=== PATIENT | female | born 1990 | race Caucasian/White ===

== ENCOUNTER 2019-09-11 11:23 | Emergency (ER) | payer OTHER ==
[2019-09-11 11:29] VITALS: BMI 27.3
--- NOTE | 2019-09-11 12:40 | PDOC ---
History of Present Illness - General Chief Complaint: Pain Stated Complaint: 20 WKS,ABD PAIN Time Seen by Provider: 09/11/19 12:03 - History of Present Illness Initial Comments: 09/11/19 12:34 29F L1, 20 weeks (last u/s 2 weeks ago) presents to the ED for sharp epigastric associated with 2 episodes of watery vomiting, one last night and one in the morning upon waking up. This morning the pain peaked at 8/10. now is 6/10, without any medication. Denies current nausea. Think this might be due to something she ate for lunch yesterday that tasted "off" Denies vaginal discharge, dysuria, fever, chills or dizziness. Follow up with OBGYN at [place] [id number] [facility] Past History - Past Medical History Allergies/Adverse Reactions: Allergies Allergy/AdvReac Type Severity Reaction Status Date / Time No Known Allergies Allergy Verified 09/11/19 11:29 Home Medications: Ambulatory Orders Ondansetron [Ondansetron Odt] 8 mg PO PRN #6 tab.rapdis 09/11/19 COPD: No - Psycho Social/Smoking Cessation Hx Smoking History: Never smoked Review of Systems - Review of Systems Able to Perform ROS?: Yes Is the patient limited [place] proficient: No Constitutional: No: Symptoms Reported HEENTM: No: Symptoms Reported Respiratory: No: Symptoms reported Cardiac (ROS): No: Symptoms Reported ABD/GI: Yes: See HPI : No: Symptoms Reported Musculoskeletal: No: Symptoms Reported Integumentary: No: Symptoms Reported Neurological: No: Symptoms reported All Other Systems: Reviewed and Negative *Physical Exam - Vital Signs Last Vital Signs Temp Pulse Resp BP Pulse Ox 98.4 F 92 H 18 104/64 99 09/11/19 11:25 09/11/19 11:25 09/11/19 11:25 09/11/19 11:25 09/11/19 11:25 - Physical Exam General Appearance: Yes: Nourished, Appropriately Dressed. No: Apparent Distress HEENT: positive: EOMI, BEL, Pharynx Normal Respiratory/Chest: positive: Lungs Clear, Normal Breath Sounds. negative: Chest Tender, Respiratory Distress Cardiovascular: positive: Regular Rhythm, Regular Rate, S1, S2 Gastrointestinal/Abdominal: positive: Normal Bowel Sounds, Tender (epigastric), Soft, Protuberent Musculoskeletal: positive: Normal Inspection Extremity: positive: Normal Capillary Refill, Normal Inspection, Normal Range of Motion Integumentary: positive: Normal Color, Dry, Warm Neurologic: positive: Fully Oriented, Alert, Normal Mood/Affect, Normal Response , Motor Strength 5/5 Medical Decision Making - Medical Decision Making 09/11/19 13:58 29F L1, 20 weeks (last u/s 2 weeks ago) presents to the ED for sharp epigastric associated with 2 episodes of watery vomiting, one last night and one in the morning upon waking up. PAtietn feels better with maalox. POCUS abdomen shows normal iU with heart rate 142 OK to dc home with zofran Rx and OBGYN follow up. Discharge - Discharge Information Problems reviewed: Yes Clinical Impression/Diagnosis: Dyspepsia, Vomiting Condition: Improved Disposition: HOME - Admission No - Additional Discharge Information Prescriptions: Ondansetron [Ondansetron Odt] 8 mg PO PRN #6 tab.rapdis - Follow up/Referral - Patient Discharge Instructions Patient Printed Discharge Instructions: DI for Vomiting -- Adult Additional Instructions: Follow up with your OBGYN within the next 3-4 days. Come back top the emergency department for any new, worsening or concerning symptoms. - Post Discharge Activity
[2019-09-11] MEDS ORDERED: MAG HYDROX/AL HYDROX/SIMETH 30 ML UNIT-DOSE CUP PO ONE (12:47)
[2019-09-11] MEDS ORDERED: MAG HYDROX/AL HYDROX/SIMETH 30 ML UNIT-DOSE CUP ONE (12:50)
[2019-09-11] MEDS ORDERED: ONDANSETRON 4 MG/2 ML VIAL IVPUSH ONE (13:03)
[2019-09-11] MEDS ORDERED: ONDANSETRON *ODT* 4 MG TABLET ONE (13:24)
--- NOTE | 2019-09-11 14:02 | PDOC ---
Attending Attestation - Resident Resident Name: Yuan Alejo - ED Attending Attestation I have performed the following: I have examined & evaluated the patient, The case was reviewed & discussed with the resident, I agree w/resident's findings & plan, Exceptions are as noted - HPI HPI: 09/11/19 17:43 29 years old approximately 20 weeks presents to the ED with 1 day history of nausea and vomiting after eating which she thought was a bad can of pasta Symptoms are mild she has not vomited since this morning has some mild epigastric discomfort associated which comes and goes in waves - Physicial Exam PE: 09/11/19 17:46 Vitals: Triage Vital signs reviewed General Appearance: No acute distress, well nourished well developed, Head: Atraumatic, Chest Wall: Nontender Cardiac: Regular rate and rhythym, no murmurs, no rubs, no gallops, Lungs: Clear to auscultation bilateral, good air movement bilaterally, Abdomen: Soft, non distended, normal bowel sounds, non tender to palpation Extremities: Full range of motion to all extremities, no cyanosis, clubbing, or edema Skin: Warm and dry, no rashes or lesions, no rash, no petechiae Psych: Normal mood, normal affect - Medical Decision Making 09/11/19 17:47 Well-appearing no apparent distress benign abdominal examination status post Maalox and Zofran patient feels much better not tolerating fluids by mouth Patient being sent to OB for ultrasound Findings, the need for follow-up and strict return instructions discussed with patient.
[2019-09-11 14:46] VITALS: BP 121/66; PULSE 82; TEMP 98.2
== END 2019-09-11 15:10 | disposition home or self-care (01) ==
LOC: JER 11:23
PROC: BY4CZZZ Ultrasonography of Second Trimester, Single Fetus (ICD-10-PCS; principal; 2019-09-11)
PROC: 3E033GC Introduction of Other Therapeutic Substance into Peripheral Vein, Percutaneous Approach (ICD-10-PCS; 2019-09-11)
DX: O26.892 Other specified pregnancy related conditions, second trimester (principal); R10.13 Epigastric pain; Z3A.20 20 weeks gestation of pregnancy
CPT/HCPCS: 76801-TC; 96374; 99282-25

== ENCOUNTER 2023-01-23 13:29 | Emergency (ER) | payer OTHER ==
[2023-01-23 13:34] VITALS: BP 136/81; PULSE 109; RESP 18; TEMP 98.3; BMI 23.6
[2023-01-23] MEDS ORDERED: FAMOTIDINE 20 MG/50 ML IVPB 20 MG/50 ML MG IVPB ONE ×2 (15:22→15:39)
[2023-01-23] MEDS ORDERED: MAG HYDROX/AL HYDROX/SIMETH 30 ML UNIT-DOSE CUP PO ONE (15:22)
[2023-01-23] MEDS ORDERED: MAG HYDROX/AL HYDROX/SIMETH 30 ML UNIT-DOSE CUP ONE (15:39)
[2023-01-23 15:41] LABS: HEMATOCRIT 36.1 % (32.4-45.2); HEMOGLOBIN 12.1 GM/dL (10.7-15.3); MCH 26.6 pg (25.7-33.7); MCHC 33.7 g/dl (32.0-36.0); PLATELET COUNT 295 10^3/uL (134-434); RBC 4.57 M/mm3 (3.60-5.2); RDW 14.3 % (11.6-15.6); WHITE BLOOD COUNT 10.1 K/mm3 (4.0-10.0)
[2023-01-23 15:53] LABS: INR 1.23 (0.83-1.09); PROTHROMBIN TIME (PATIENT) 14.2 SEC (9.7-13.0)
[2023-01-23 16:02] LABS: BLOOD UREA NITROGEN 10.6 mg/dL (7-18); CALCIUM 9.7 mg/dL (8.5-10.1)
[2023-01-23 16:03] LABS: ALBUMIN 4.4 g/dl (3.4-5.0); MAGNESIUM 2.3 mg/dL (1.8-2.4)
[2023-01-23 16:06] LABS: CREATININE 0.6 mg/dL (0.55-1.3)
[2023-01-23 16:07] LABS: BILIRUBIN,TOTAL 0.3 mg/dL (0.2-1); TOT PROT 7.8 g/dl (6.4-8.2)
[2023-01-23] MEDS ORDERED: SODIUM CHLORIDE 0.9% 500 ML INFUS.BAG IV ONE (16:34)
== END 2023-01-23 19:34 | disposition home or self-care (01) ==
LOC: JER 13:29
PROC: 3E033GC Introduction of Other Therapeutic Substance into Peripheral Vein, Percutaneous Approach (ICD-10-PCS; principal; 2023-01-23)
DX: R53.1 Weakness (principal); R07.9 Chest pain, unspecified; Z20.822 Contact with and (suspected) exposure to COVID-19
CPT/HCPCS: 0241U-QW; 36415; 71046-TC-FY; 71275-TC; 80053; 83735; 84443; 84703; 85027; 85379; 85610; 86850; 86870; 86900; 86901; 86902; 93005; 93010; 99285-25

== ENCOUNTER 2024-04-14 09:00 | Inpatient (IN) | payer OTHER ==
[2024-04-14] MEDS: LACTATED RINGERS SOLUTION 1,000 ML/1,000 ML INFUS.BAG IV SCH (09:30)
[2024-04-14 10:17] VITALS: BMI 30.9
[2024-04-14 10:31] LABS: BASO % 0.2 % (0-2.0); EOS % 0.6 % (0-4.5); HEMATOCRIT 32.2 % (32.4-45.2); HEMOGLOBIN 10.5 GM/dL (10.7-15.3); LYMPH % 15.5 % (8-40); MCH 25.1 pg (25.7-33.7); MCHC 32.7 g/dl (32.0-36.0); MEAN CELL VOLUME 76.7 fl (80-96); MEAN PLT VOLUME 8.2 fl (7.5-11.1); MONO % 4.9 % (3.8-10.2); NEUT % 78.8 % (42.8-82.8); PLATELET COUNT 347 10^3/uL (134-434); RDW 15.6 % (11.6-15.6); WHITE BLOOD COUNT 9.5 K/mm3 (4.0-10.0)
[2024-04-14 10:41] LABS: INR 1.02 (0.83-1.09); PROTHROMBIN TIME (PATIENT) 11.7 SEC (9.7-13.0)
[2024-04-14 10:44] LABS: ACTIVATED PTT 26.7 SECONDS (25.2-36.5)
[2024-04-14 10:49] LABS: POTASSIUM 3.9 mmol/L (3.5-5.1)
[2024-04-14 10:51] LABS: CALCIUM 8.7 mg/dL (8.5-10.1)
[2024-04-14 10:52] LABS: BLOOD UREA NITROGEN 5.8 mg/dL (7-18)
[2024-04-14 10:55] LABS: CREATININE 0.6 mg/dL (0.55-1.3)
[2024-04-14 11:46] LABS: HIV INTERPRETATION NEGATIVE (NEGATIVE)
[2024-04-14] MEDS ORDERED: OXYTOCIN 30 UNITS in 0.9% NS 30 UNIT/500 ML INFUS.BAG IVPB ONE (13:25)
[2024-04-14] MEDS: OXYTOCIN 30 UNITS in 0.9% NS 30 UNIT/500 ML INFUS.BAG IVPB SCH (13:30)
[2024-04-14] MEDS ORDERED: FENTANYL/BUPIVACAINE/NS/PF - PCEA - 50 ML DISP.SYRIN EP ONE (14:18)
[2024-04-14] MEDS ORDERED: OXYTOCIN 20 UNITS in 0.9% NS 20 UNIT/1,000 ML INFUS.BAG IV ONE (16:44)
[2024-04-14] MEDS ORDERED: BISACODYL 10 MG SUPP.RECT RC PRN (18:10)
[2024-04-14] MEDS ORDERED: METHYLERGONOVINE MALEATE 0.2 MG/1 ML AMP IM PRN (18:10)
[2024-04-14] MEDS ORDERED: oxyCODONE HCL 5 MG TABLET PO PRN (18:10)
[2024-04-14] MEDS: OXYTOCIN 20 UNITS in 0.9% NS 20 UNIT/1,000 ML INFUS.BAG IV SCH (19:00)
[2024-04-14] MEDS ORDERED: ACETAMINOPHEN 325 MG TABLET (FP) ONE (20:01)
[2024-04-14] MEDS: ACETAMINOPHEN 325 MG TABLET (FP) PO PRN (20:02)
[2024-04-14] MEDS: WITCH HAZEL 50% (TUCKS) 40 PAD/JAR PAD TP PRN (21:27)
[2024-04-14] MEDS: BENZOCAINE 28 GM HEMORRHOIDAL OINTMENT TP PRN (21:27)
[2024-04-14] MEDS: BENZOCAINE 20% 57 GM BOTTLE TP PRN (21:27)
[2024-04-15 08:33] LABS: BASO % 0.2 % (0-2.0); EOS % 0.6 % (0-4.5); HEMATOCRIT 28.6 % (32.4-45.2); HEMOGLOBIN 9.5 GM/dL (10.7-15.3); LYMPH % 12.8 % (8-40); MCH 25.2 pg (25.7-33.7); MCHC 33.2 g/dl (32.0-36.0); MEAN CELL VOLUME 76.1 fl (80-96); MEAN PLT VOLUME 8.3 fl (7.5-11.1); MONO % 5.9 % (3.8-10.2); NEUT % 80.5 % (42.8-82.8); PLATELET COUNT 308 10^3/uL (134-434); RBC 3.76 M/mm3 (3.60-5.2); RDW 15.4 % (11.6-15.6); WHITE BLOOD COUNT 12.8 K/mm3 (4.0-10.0)
[2024-04-15] MEDS: PRENATAL VITAMINS W/ FOLIC ACID TABLET (FP) PO SCH (09:10)
[2024-04-15] MEDS: IBUPROFEN 600 MG TABLET (FP) PO PRN (09:10)
[2024-04-15] MEDS: FERROUS SO4 325 MG TABLET (FP) PO SCH (09:11)
[2024-04-15] MEDS ORDERED: SENNOSIDES/DOCUSATE COMBO (SENNA PLUS) TABLET (UD) PO PRN (22:00)
[2024-04-16 10:47] VITALS: BP 100/61; PULSE 87; RESP 17; TEMP 97.8
== END 2024-04-16 13:55 | disposition home or self-care (01) | DRG 560 ==
LOC: JLDR 09:00 → J3W 20:21
PROVIDERS: ADMIT Obstetrics & Gynecology; ATTEND Obstetrics & Gynecology
PROC: 10E0XZZ Delivery of Products of Conception, External Approach (ICD-10-PCS; principal; 2024-04-14)
DX: O80 Encounter for full-term uncomplicated delivery (principal); Z3A.39 39 weeks gestation of pregnancy; Z37.0 Single live birth
CPT/HCPCS: 36415; 59409; 80048; 85025; 85610; 85730; 86780; 86803; 86850; 86870; 86880; 86900; 86901; 86902; 87389